=== PATIENT | male | born 1960 ===

== ENCOUNTER → 2018-04-06 | Outpatient (REF) | payer OTHER ==
[2018-04-06 15:06] LABS: FERRITIN 602 NG/ML (26-388); IRON (FE) 54 UG/DL (65-175); TOTAL IRON BINDING CAPACITY 186 UG/DL (250-450)
[2018-04-06 15:34] LABS: VITAMIN B12 LEVEL 998 PG/ML
[2018-04-06 15:35] LABS: FOLATE > 24.0 NG/ML
== END ==
LOC: M LAB REF 13:24
DX: N18.9 Chronic kidney disease, unspecified (principal); D63.1 Anemia in chronic kidney disease
CPT/HCPCS: 82746